=== PATIENT | female | born 1960 | race Caucasian/White ===

== ENCOUNTER 2023-03-21 10:39 | Emergency (ER) | payer OTHER, SELFPAY ==
[2023-03-21 10:49] VITALS: BP 131/79
--- NOTE | 2023-03-21 12:15 | ED.GENMED ---
History of Present Illness
General
Chief Complaint: Musculo-Skeletal Complaint
Source: patient
Exam Limitations: none
Time Seen by Provider: 03/21/23 12:05
Nursing documentation reviewed up to this point in time: agreed with
Travel History
Have you had any contact with someone who has COVID-19?: No
Do you have any symptoms of coronavirus? Fever > 100 degrees, chills, cough, shortness of breath, sore throat, loss of taste or smell, muscle aches, or headache?: No
History of Present Illness
History of Present Illness:
Patient is a 63-year-old female who complains of right wrist pain and injury. She reports last night around 12 AM she fell back landing on her right wrist. She denies any other injuries. She denies hitting her head. She is on blood thinners.
She is right-hand dominant. She denies any lacerations.
Review of Systems
Review of Systems
All Other Systems: ROS reviewed and negative except as documented in HPI and ROS
Constitutional: Reports no symptoms
Musculoskeletal: Reports other (Right wrist pain)
Skin: Reports no symptoms
Neurological: Reports no symptoms
Psychiatric: Reports no symptoms
Phy Exam
General Physical Exam
General Presentation: no apparent distress
General age: appears stated age
General Skin: warm
General Mental: alert
General Hydration: appears well hydrated
Neurological Exam
Neurological Exam: alert and oriented x3
Musculoskeletal Exam
Musculoskeletal Exam: other (Right upper extremity strong pulses patient has swelling and tenderness over the navicular with normal cap refill, no tenderness to fingers no tenderness to the elbow full range of motion to elbow)
Skin Exam
Skin Exam: normal color and warm/dry
Psychiatric Exam
Psychiatric Exam: normal mood/affect
Course
Orders/Labs/Results
Orders:
Orders
03/21/23 10:52
Wrist, Right 3 Views [CR Wrist - Right Min 3 Views] Urgent
Comment:
Reason For Exam: injury
03/21/23 12:15
Sling Right-Treatment ONCE
Splints/Slings/Crut- Treatment ONCE
Location: Right
Type of Splint: Thimb Spica
Vital Signs
Initial and Last Documented VS:
Initial Vital Signs
Temp Pulse Resp BP Pulse Ox
98 F 81 16 131/79 95
03/21/23 10:49 03/21/23 10:49 03/21/23 10:49 03/21/23 10:49 03/21/23 10:49
Last Documented Vital Signs
Temp Pulse Resp BP Pulse Ox
98 F 81 16 131/79 95
03/21/23 10:49 03/21/23 10:49 03/21/23 10:49 03/21/23 10:49 03/21/23 10:49
Procedures
Splint Check
Splint checked by provider?: Yes
Circulation/Movement/Sensation post splint application: brisk cap refill and full sensation
MDM/Problems Addressed
Differential Diagnosis Includes:
not limited to: sprain/contusion/fracture
MDM/Problems Addressed:
Patient with tenderness over navicular though no obvious fracture identified on x-ray will treat this fracture conservatively with splint. Patient has seen Dr. Frias in the past for surgery on her tendons of her right hand will DC back to see
Altagracia. Splint care reviewed. Patient has ibuprofen at home
*Radiology
Radiology exam reviewed: radiology read reviewed
*Critical Care Note
Total Time (30-74mins, 75-104mins- exclusive of procedures): Not Applicable
ED Attending Note
-
Portions of this chart may have been created with voice recognition software.� Occasional wrong word or��sound alike� substitutions may have occurred due to the inherent limitations of voice recognition software.
Discharge Plan
Departure
Patient Disposition: Home (Routine Discharge)
Date of Disposition: 03/21/23
Time of Disposition: 12:18
Patient with high blood pressure during this ER visit?: Yes
Condition: Fair
Covid-19: Not Applicable
Discharge Problem:
Right wrist sprain
Instructions: Wrist Sprain (DC), Splint Care, BLOOD PRESSURE
Referrals:
Dion Frias MD [Active] -
Mary Selby CRNP [Family Provider] -
Activity Restrictions/Additional Instructions:
As discussed you are tender over the navicular/scaphoid bone and therefore splinted. We treat this as possible fracture.
This will need outpatient followed by orthopedics. Please call orthopedics tomorrow to follow-up with Dr. Frias in the next 2 days. Keep splint dry. Do not wet it. Keep elevated as much as possible. You may take ibuprofen every 8 hours.. You
may wear sling for support but remove at night while sleeping.
Return if any worsening of symptoms of increased pain numbness tingling or any further concerns.
Interventions
Interventions:
*Risk Screen - Suicide Last Done: 03/21/23 10:49
*General Assessment Last Done: 03/21/23 10:49
*Neglect/Abuse Screening Last Done: 03/21/23 10:49
*ED COVID-19 Vaccine History Last Done: 03/21/23 10:58
ED-Musculoskeletal Assessment Last Done: 03/21/23 10:58
[2023-03-21 12:50] VITALS: BP 138/71
== END 2023-03-21 12:56 | disposition home or self-care (01) ==
LOC: EMR 10:39
PROVIDERS: EMERGENCY PHYSICIAN Emergency Medicine; FAMILY PHYSICIAN Nurse Practitioner Adult Health
DX: S63.501A Unspecified sprain of right wrist, initial encounter (principal); W01.0XXA Fall on same level from slipping, tripping and stumbling without subsequent striking against object, initial encounter; Z79.01 Long term (current) use of anticoagulants
CPT/HCPCS: 99283; 29125; 73110

== ENCOUNTER → 2023-10-14 13:32 | Outpatient (REF) | payer OTHER, SELFPAY | LOC: RCS 13:32 | PROVIDERS: ATTENDING PHYSICIAN Nurse Practitioner Adult Health | DX: I10 Essential (primary) hypertension (principal); R07.9 Chest pain, unspecified | CPT/HCPCS: 93017 ==

== ENCOUNTER → 2023-11-01 14:40 | Outpatient (REF) | payer OTHER, SELFPAY | LOC: RCS 14:40 | PROVIDERS: ATTENDING PHYSICIAN Nurse Practitioner Adult Health | DX: I10 Essential (primary) hypertension (principal); R07.9 Chest pain, unspecified | CPT/HCPCS: 93306 ==

== ENCOUNTER 2023-12-06 18:22 | Emergency (ER) | payer OTHER, SELFPAY ==
[2023-12-06 18:24] VITALS: BP 158/93
--- NOTE | 2023-12-06 18:24 | ED.SKININJ ---
HPI-Injury
<Shantal Person NP - Last Filed: 12/06/23 18:29>
General
Chief Complaint: Chest Pain
Time Seen by Provider: 12/06/23 21:16
<Christi Turner PA-C - Last Filed: 12/07/23 10:09>
General
Source: patient
History of Present Illness-Injury
Initial Injury comments:
63yoF with a history of hypertension and COPD presenting for evaluation of chest pain. Patient reports a constant right-sided chest pain for the past 2 weeks. She initially woke up with the pain. She denies any trauma or inciting incident. The
pain feels like a muscle strain. Pain is worse with certain movements and breathing. She took ibuprofen earlier today with some improvement. Her pain started to become severe earlier today which prompted her to come to the ED for evaluation. She
is otherwise asymptomatic and denies any fevers, cough, shortness of breath, vomiting.
ED Provider Triage
<Shantal Person NP - Last Filed: 12/06/23 18:29>
-
Patient seen by provider in Triage?: Seen in Triage
Attestation: A medical screening examination has been initiated by a qualified medical provider. Based on the assessment performed at this time, it has been determined that an emergent medical condition may exist and the patient has been informed
that further medical evaluation and possible additional diagnostic testing may be needed.
HPI: 63 yo female here for pain mid to right chest pain past two weeks. Moving makes it worse. Is constant, every day, resting pain is 3-4/10, today it got worse and now 10/10 with movement. Hurts to take a deep breath.
GENERAL: Alert , in no apparent distress
EYE: No visual abnormalities.
ENT: No visible abnormalities.
LUNGS: No acute respiratory distress
CHEST: Tender to palpate mid to right chest wall.
NEUROLOGICAL: Alert and oriented
SKIN: Skin intact. No visible changes.
MUSCULOSKELETAL: Moving extremities normally
PSYCH: Normal and appropriate interaction.
This is a medical evaluation conducted in person to initiate diagnostic evaluation and provide initial therapeutics. Please see further documentation by the treating clinician.
Phy Exam
<Christi Turner PA-C - Last Filed: 12/07/23 10:09>
General Physical Exam
General Presentation: well appearing and no apparent distress
General age: appears stated age
General Skin: warm and dry
General Habitus: normal
General Mental: alert
ENT Exam
ENT Exam: normocephalic
Cardiovascular Exam
Cardiovascular Exam: regular rate/rhythm, no edema, no murmur and normal peripheral pulses (2+ radial pulses bilaterally)
Pulmonary Exam
Pulmonary Exam: lungs clear, no respiratory distress, no crackles, no wheezing and other (+R chest wall tenderness. No skin changes or crepitus.)
Gastrointestinal Exam
Gastrointestinal Exam: non tender, soft and non distended
Neurological Exam
Neurological Exam: alert
[place] Coma Scale
Eye Opening: Spontaneous
Verbal Response: Oriented
Motor Response: Obeys Commands
GCS Total Score: 15
Skin Exam
Skin Exam: normal color and warm/dry
Psychiatric Exam
Psychiatric Exam: normal mood/affect
Scores
<Christi Turner PA-C - Last Filed: 12/07/23 10:09>
Heart Score for Chest Pain Patients
STEMI patient?: No
History: Slightly or Non-Suspicious
ECG: Normal
Age: >45 - <65 years
Risk Factors: 1 or 2 Risk Factors
Troponin: </= Normal Limit
Heart Score for Chest Pain Patients: 2
Heart Score Risk: 2.5% MACE over next 6 weeks
Course
Ashvinlt;Shantal Person [employer] - Last Filed: 12/06/23 18:29>
Orders/Labs/Results
Orders:
Orders
12/06/23 18:28
Electrocardiogram (*1) Urgent
Reason for Study: Chest Pain
EKG- Treatment ONCE
CR Chest - 2 Views Urgent
Comment:
Reason For Exam: mid to right chest pain
12/06/23 21:34
Ketorolac [Toradol] 15 mg IV NOW STA
12/06/23 21:50
Complete Blood Count/With Diff Urgent
Comprehensive Metabolic Panel Urgent
D-Dimer Urgent
Troponin I Urgent
12/06/23 22:52
Acetaminophen [Tylenol] 1,000 mg PO NOW STA
Ketorolac [Toradol] 15 mg IV NOW STA
Abnormal Lab Results
12/06/23
21:50
MCH 31.1 H pg
(27.0-31.0)
Glucose 128 H mg/dl
(70-99)
12/06/23 21:50
12/06/23 21:50
Vital Signs
Initial and Last Documented VS:
Initial Vital Signs
Temp Pulse Resp BP Pulse Ox
98.1 F 84 16 158/93 96
12/06/23 18:24 12/06/23 18:24 12/06/23 18:24 12/06/23 18:24 12/06/23 18:24
Last Documented Vital Signs
Temp Pulse Resp BP Pulse Ox
98.1 F 69 21 133/82 97
12/06/23 18:24 12/06/23 23:15 12/06/23 23:15 12/06/23 23:00 12/06/23 23:15
Ashvinlt;Christi Turner PA-C - Last Filed: 12/07/23 10:09>
Orders/Labs/Results
Orders:
Orders
12/06/23 18:28
Electrocardiogram (*1) Urgent
Reason for Study: Chest Pain
EKG- Treatment ONCE
CR Chest - 2 Views Urgent
Comment:
Reason For Exam: mid to right chest pain
12/06/23 21:34
Ketorolac [Toradol] 15 mg IV NOW STA
12/06/23 21:50
Complete Blood Count/With Diff Urgent
Comprehensive Metabolic Panel Urgent
D-Dimer Urgent
Troponin I Urgent
12/06/23 22:52
Acetaminophen [Tylenol] 1,000 mg PO NOW STA
Ketorolac [Toradol] 15 mg IV NOW STA
Abnormal Lab Results
12/06/23
21:50
MCH 31.1 H pg
(27.0-31.0)
Glucose 128 H mg/dl
(70-99)
12/06/23 21:50
12/06/23 21:50
Vital Signs
Initial and Last Documented VS:
Initial Vital Signs
Temp Pulse Resp BP Pulse Ox
98.1 F 84 16 158/93 96
12/06/23 18:24 12/06/23 18:24 12/06/23 18:24 12/06/23 18:24 12/06/23 18:24
Last Documented Vital Signs
Temp Pulse Resp BP Pulse Ox
98.1 F 69 21 133/82 97
12/06/23 18:24 12/06/23 23:15 12/06/23 23:15 12/06/23 23:00 12/06/23 23:15
<Christi Turner PA-C - Last Filed: 12/07/23 10:09>
MDM/Problems Addressed
Differential Diagnosis Includes:
63yoF here with R sided chest pain x 2 weeks. Constant pain that is worse with movement/breathing. Denies trauma. VSS. She is well appearing in no distress. There is reproducible tenderness on exam. Differential diagnosis includes but is not limited
to: costochondritis, pleurisy, pneumonia, pneumothorax, PE, ACS
Initial ED plan: Check cardiac labs, D-dimer, EKG, and CXR. IV Toradol for pain.
<Christi Turner PA-C - Last Filed: 12/07/23 10:09>
*EKG
Interpreted by ED Provider?: Yes
EKG Intrepretation Date: 12/06/23
Heart Rate: 79
Rate: normal
Rhythm: sinus
[place]: normal axis
Interval: normal interval
QRS Pattern: normal QRS
Ischemia: no ischemia
*Critical Care Note
Total Time (30-74mins, 75-104mins- exclusive of procedures): Not Applicable
<Christi Turner PA-C - Last Filed: 12/07/23 10:09>
Update Note
Update Note:
Labs overall unremarkable. D-dimer normal making PE very unlikely. EKG shows NSR without ischemic changes and troponin WNL. CXR is clear. Pain improved with Toradol. No indication for admission. Suspect musculoskeletal cause of pain. Supportive care
discussed. She has an appt tomorrow with her PCP for close f/u. ED return precautions discussed. She expressed understanding and is agreeable to plan. She was discharged in stable condition.
ED Attending Note
<Shantal Person [employer] - Last Filed: 12/06/23 18:29>
-
Portions of this chart may have been created with voice recognition software.� Occasional wrong word or��sound alike� substitutions may have occurred due to the inherent limitations of voice recognition software.
Discharge Plan
Departure
Patient Disposition: Home (Routine Discharge)
Date of Disposition: 12/06/23
Time of Disposition: 22:53
Patient with high blood pressure during this ER visit?: Yes
Discharge Problem:
Chest wall pain
Instructions: Chest Pain PCP Follow Up
Referrals:
Mary Selby CRNP [Family Provider] -
Activity Restrictions/Additional Instructions:
Apply heat to affected area. Take Tylenol and ibuprofen as needed for pain.
Please follow-up with your family doctor tomorrow. Return to the ER with any new or worsening symptoms.
Interventions
Interventions:
*Risk Screen - Suicide Last Done: 12/06/23 18:24
*General Assessment Last Done: 12/06/23 21:25
*Neglect/Abuse Screening Last Done: 12/06/23 18:24
ED- Fall Risk Assessment Last Done: 12/06/23 21:25
*ED COVID-19 Vaccine History Last Done: 12/06/23 21:25
*Nursing Disposition Last Done: 12/06/23 23:30
ED- Cardiac Assessment Last Done: 12/06/23 21:25
Discharge Date and Time
Discharge Date/Time: 12/06/23 23:30
Print Language: TURKMEN
[2023-12-06 20:40] VITALS: BP 170/69
[2023-12-06 21:45] VITALS: BP 133/85
[2023-12-06 21:51] VITALS: BMI 26.4
[2023-12-06] MEDS: TORADOL 15 MG IV ×2 (21:54→23:22)
[2023-12-06 21:59] LABS: % Basophils 0.5 % (0-2); % Eosinophils 1.4 % (0-6); % Immature Granulocytes 0.2 % (0-0.5); % Lymphocytes 34.3 % (20.5-51.1); % Monocytes 5.9 % (1.7-9.3); % Neutrophils 57.7 % (42.2-75.2); Absolute Eosinophils 0.1 10^3/uL (0-0.7); Absolute Monocytes 0.3 10^3/uL (0.1-0.6); Absolute Neutrophils 3.3 10^3/uL (1.4-6.5); Hematocrit 37.3 % (37.0-47.0); Hemoglobin 13.1 g/dL (12.0-16.0); Mean Corp Hgb Conc. 35.1 g/dL (33.0-37.0); Mean Corpuscular Hgb 31.1 pg (27.0-31.0); Mean Corpuscular Volume 88.6 fL (81.0-99.0); Mean Platelet Volume 9.3 fL (7.4-10.4); Nucleated Red Blood Cells % 0 %; Platelet Count 177 10^3/uL (130-400); Red Blood Cell Count 4.21 10^6/uL (4.20-5.40); Red Cell Dist. Width 11.6 % (11.5-14.5); White Blood Cell Count 5.8 10^3/uL (4.8-10.8)
[2023-12-06 22:00] VITALS: BP 147/88
[2023-12-06 22:11] LABS: D-Dimer 0.49 ug/mlFEU (0.00-0.50)
[2023-12-06 22:19] LABS: ALT (SGPT) 21 U/L (0-35); AST (SGOT) 30 U/L (14-36); Albumin 4.3 g/dl (3.5-5.0); Alkaline Phosphatase 95 U/L (38-126); Blood Urea Nitrogen 17 mg/dl (7-17); Calcium 9.5 mg/dl (8.4-10.2); Carbon Dioxide 25 mmol/L (22-30); Chloride 103 mmol/L (98-107); Estimated Creatinine Clearance 76 ml/min; Glucose 128 mg/dl (70-99); Potassium 3.6 mmol/L (3.5-5.1); Sodium 140 mmol/L (135-145); Total Bilirubin 0.6 mg/dl (0.2-1.3); Total Protein 6.8 g/dl (6.3-8.2); eGFR > 60.00
[2023-12-06 22:24] LABS: Troponin I < 0.012 ng/ml
[2023-12-06 23:00] VITALS: BP 133/82
[2023-12-06] MEDS: TYLENOL 1000 MG PO (23:23)
== END 2023-12-06 23:30 | disposition home or self-care (01) ==
LOC: EMR 18:22
PROVIDERS: Physician Assistant; EMERGENCY PHYSICIAN Emergency Medicine; FAMILY PHYSICIAN Nurse Practitioner Adult Health
DX: R07.89 Other chest pain (principal); I10 Essential (primary) hypertension; J44.9 Chronic obstructive pulmonary disease, unspecified
CPT/HCPCS: 96374; 96375; 96376; 99285; 71046; 80053; 84484; 85025; 85379; 93005

== ENCOUNTER → 2024-01-18 12:22 | Outpatient (REF) | payer MEDICARE, OTHER, SELFPAY | LOC: RAD 12:22 | PROVIDERS: ATTENDING PHYSICIAN Internal Medicine Critical Care Medicine; FAMILY PHYSICIAN Nurse Practitioner Adult Health | DX: R91.8 Other nonspecific abnormal finding of lung field (principal); E27.8 Other specified disorders of adrenal gland | CPT/HCPCS: 71250; 74150 ==

== ENCOUNTER 2024-02-06 17:47 | Emergency (ER) | payer MEDICARE, OTHER, SELFPAY ==
[2024-02-06 17:51] VITALS: BP 163/87
--- NOTE | 2024-02-06 18:00 | ED.GENMED ---
History of Present Illness
General
Chief Complaint: Musculo-Skeletal Complaint
Source: patient
Exam Limitations: none
Time Seen by Provider: 02/06/24 17:58
Nursing documentation reviewed up to this point in time: agreed with
History of Present Illness
History of Present Illness:
64-year-old female presenting to the emergency department today with concerns of a fourth toe injury to the left foot that she had on a riser 2 nights ago. Discomfort with ambulation ongoing. Denies numbness weakness or additional injuries
Review of Systems
Review of Systems
Allergies reviewed?: Yes
All Other Systems: ROS reviewed and negative except as documented in HPI and ROS
Phy Exam
Physical Exam
Physical Exam:
GENERAL: Alert , in no apparent distress
EYE: pupils equal and reactive
NECK: Supple, no significant adenopathy.
ENT: o/p clr, mmm.
CARDIAC: Regular rate and rhythm .
LUNGS: Clear breath sounds bilaterally, no acute respiratory distress, no wheezes/rales/rhonchi
ABDOMEN: Soft, without focal tenderness, no r/g, no cvat
NEUROLOGICAL: Alert and oriented, no focal neuro deficits
SKIN: Warm and dry, skin intact.
MUSCULOSKELETAL: Left fourth toe swelling redness tenderness palpation. No tenderness throughout the remainder of the foot remainder of the toes or ankle. Ambulating well, well perfused.
PSYCH: Normal and appropriate interaction.
Course
Orders/Labs/Results
Orders:
Orders
02/06/24 17:49
CR Foot - Left Min 3 Views Urgent
Reason For Exam: pain to left 4th toe
02/06/24 18:15
boot [Ortho Boot Left- Treatment] ONCE
Short or tall?: Short
Vital Signs
Initial and Last Documented VS:
Initial Vital Signs
Temp Pulse Resp BP Pulse Ox
97.8 F 94 16 163/87 98
02/06/24 17:51 02/06/24 17:51 02/06/24 17:51 02/06/24 17:51 02/06/24 17:51
Last Documented Vital Signs
Temp Pulse Resp BP Pulse Ox
97.8 F 94 16 163/87 98
02/06/24 17:51 02/06/24 17:51 02/06/24 17:51 02/06/24 17:51 02/06/24 17:51
MDM/Problems Addressed
MDM/Problems Addressed:
64-year-old female presenting to the emergency department today with concerns of left fourth toe discomfort after hitting it on a riser 2 nights ago. There is tenderness to palpation on examination. To the fourth toe. X-ray showing fracture.
Patient was parvin taped and given a hard soled shoe but otherwise stable for outpatient follow-up return precautions given.
*Critical Care Note
Total Time (30-74mins, 75-104mins- exclusive of procedures): Not Applicable
ED Attending Note
-
Portions of this chart may have been created with voice recognition software.� Occasional wrong word or��sound alike� substitutions may have occurred due to the inherent limitations of voice recognition software.
Discharge Plan
Departure
Patient Disposition: Home (Routine Discharge)
Date of Disposition: 02/06/24
Time of Disposition: 18:23
Patient with high blood pressure during this ER visit?: No
Condition: Good
Covid-19: Not Applicable
Discharge Problem:
Closed fracture of fourth toe of left foot
Instructions: Toe Fracture ED
Referrals:
Mary Selby CRNP [Family Provider] -
Activity Restrictions/Additional Instructions:
You came to the emergency department today with concerns of toe discomfort. You are found have a fracture to the proximal phalanx of the fourth toe. Please use the hard soled shoe elevate and ice with hopeful improvement over the next few weeks.
Please follow closely with the foot for any ongoing issues. Return for any worsening, new or concerning symptoms.
Interventions
Interventions:
*Risk Screen - Suicide Last Done: 02/06/24 17:51
*Neglect/Abuse Screening Last Done: 02/06/24 17:51
Discharge Date and Time
Print Language: MALAY
[2024-02-06 18:44] VITALS: BP 160/80
== END 2024-02-06 18:46 | disposition home or self-care (01) ==
LOC: EMR 17:47
PROVIDERS: EMERGENCY PHYSICIAN Emergency Medicine; FAMILY PHYSICIAN Nurse Practitioner Adult Health
DX: S92.502A Displaced unspecified fracture of left lesser toe(s), initial encounter for closed fracture (principal); W22.09XA Striking against other stationary object, initial encounter
CPT/HCPCS: 99283; 73630

== ENCOUNTER 2024-08-11 21:02 | Emergency (ER) | payer MEDICARE, OTHER, SELFPAY ==
[2024-08-11 21:04] VITALS: BP 122/76
--- NOTE | 2024-08-11 22:27 | ED.SKININJ ---
HPI-Injury
General
Chief Complaint: Skin Problem
Source: patient
Exam Limitations: none
Time Seen by Provider: 08/11/24 21:28
Nursing documentation reviewed up to this point in time: agreed with
History of Present Illness-Injury
Is this injury a work related problem?: No
Is pt an associate of [facility] [place]?: No
Initial Injury comments:
Patient states a knife fell and cut her right great toe. Incident occurred just dentures lab technician
Past History
Past History
ED Past Medical History: None
Review of Systems
Review of Systems
Allergies reviewed?: Yes
All Other Systems: ROS reviewed and negative except as documented in HPI and ROS
Constitutional: Reports no symptoms
Musculoskeletal: Reports no symptoms
Skin: Reports other (Laceration to dorsal surface right great toe)
Neurological: Reports no symptoms
Psychiatric: Reports no symptoms
Skin Exam
Laceration
Right Dorsal First Toe:
Length in cm: 2.5
Orientation: horizontal
Type of Laceration: simple
Any active bleeding?: no active bleeding
Distal skin color and temperature: normal-warm & good color
Normal distal neurovascular exam: Yes
Range of motion: full
Phy Exam
General Physical Exam
General Presentation: well appearing and no apparent distress
General age: appears stated age
General Skin: warm and dry
General Habitus: normal
General Mental: alert
Musculoskeletal Exam
Musculoskeletal Exam: full ROM, neuro vasc intact and other (No evidence of tendon injury. Full ROM toe, equal strenght bilaterally)
Skin Exam
Skin Exam: normal color, warm/dry and no rash
Psychiatric Exam
Psychiatric Exam: normal mood/affect
Course
Orders/Labs/Results
Orders:
Orders
08/11/24 22:23
Sulfamethox./Trimethoprim Ds [Bactrim Ds 800 mg/160 mg] 1 tablet PO NOW STA
08/11/24 22:24
Cast Shoe Right-Treatment ONCE
Vital Signs
Initial and Last Documented VS:
Initial Vital Signs
Temp Pulse Resp BP Pulse Ox
98.6 F 81 20 122/76 93
08/11/24 21:04 08/11/24 21:04 08/11/24 21:04 08/11/24 21:04 08/11/24 21:04
Last Documented Vital Signs
Temp Pulse Resp BP Pulse Ox
98.6 F 81 20 122/76 93
08/11/24 21:04 08/11/24 21:04 08/11/24 21:04 08/11/24 21:04 08/11/24 21:04
Procedures
Laceration Closure
Right Dorsal First Toe:
Status of Wound: clean
Description of Wound Edges: sharp
Preparation: cleaned with saline and cleaned with Betadine
Anesthesia: 1% Lidocaine and Digital-Regional
Wound exploration: explored to base- no FB and no tendon involvement (No evidence of injury on exam. WIll follow up with ortho next week for reassessment of tendon.)
Type of Closure: single layer closure
Skin Closure Material: 4-0 prolene
*Pulse Oximetry
SaO2: 93
Oxygen Mode of Delivery: Room air
Patient hypoxic: no
*Critical Care Note
Total Time (30-74mins, 75-104mins- exclusive of procedures): Not Applicable
ED Attending Note
-
Portions of this chart may have been created with voice recognition software.� Occasional wrong word or��sound alike� substitutions may have occurred due to the inherent limitations of voice recognition software.
Discharge Plan
Departure
Patient Disposition: Home (Routine Discharge)
Date of Disposition: 08/11/24
Time of Disposition: 22:25
Patient with high blood pressure during this ER visit?: No
Condition: Good
Covid-19: Not Applicable
Discharge Problem:
Laceration of toe
Instructions: Stitches - ED discharge instructions
Prescriptions:
New
sulfamethoxazole-trimethoprim [Bactrim DS] 800-160 mg tablet
1 tab PO BID Qty: 14 0RF
Referrals:
Hu Chiu DPM [Active, Podiatry] - Call in 1-3 days for appt
Mary Selby CRNP [Family Provider, General]
Activity Restrictions/Additional Instructions:
Follow up with orthopedics for reassessment of your right great toe tendon. Sutures can be removed by your family doctor in 7-10 days.
Interventions
Interventions:
*General Assessment Last Done: 08/11/24 21:04
Discharge Date and Time
Print Language: LITHUANIAN
[2024-08-11] MEDS: BACTRIM DS 800 MG/160 MG 1 TABLET PO (22:37)
== END 2024-08-11 23:05 | disposition home or self-care (01) ==
LOC: EMR 21:02
PROVIDERS: EMERGENCY PHYSICIAN Emergency Medicine; FAMILY PHYSICIAN Nurse Practitioner Adult Health
DX: S91.111A Laceration without foreign body of right great toe without damage to nail, initial encounter (principal); W26.0XXA Contact with knife, initial encounter
CPT/HCPCS: 12001; 99282

== ENCOUNTER 2024-10-30 06:05 | Day surgery (SDC) | payer MEDICARE, OTHER, SELFPAY ==
[2024-10-17 08:57] LABS: Hematocrit 42.6 % (37.0-47.0); Hemoglobin 14.2 g/dL (12.0-16.0); Mean Corp Hgb Conc. 33.3 g/dL (33.0-37.0); Mean Corpuscular Volume 94.7 fL (81.0-99.0); Platelet Count 178 10^3/uL (130-400); Red Cell Dist. Width 11.9 % (11.5-14.5)
[2024-10-17 11:10] LABS: Blood Urea Nitrogen 12 mg/dl (7-17); Calcium 9.4 mg/dl (8.4-10.2); Carbon Dioxide 25 mmol/L (22-30); Chloride 106 mmol/L (98-107); Glucose 96 mg/dl (70-99); Potassium 4.6 mmol/L (3.5-5.1); Sodium 136 mmol/L (135-145); eGFR > 60.00
[2024-10-17 14:05] VITALS: BMI 25.0
[2024-10-30] VITALS (8 sets, daily range): BP systolic 111–141; BP diastolic 50–86; BMI 25.0
[2024-10-30] MEDS: CELEBREX 200 MG PO (08:33)
[2024-10-30] MEDS: TYLENOL 1000 MG PO (08:33)
[2024-10-30] MEDS: NORMOSOL-R/PLASMALYTE-A 1000 IV (08:35)
[2024-10-30] MEDS: VANCOCIN 200 IV (08:41)
== END 2024-10-30 12:57 | disposition home or self-care (01) ==
LOC: SDS 06:05
PROVIDERS: ATTENDING PHYSICIAN Student in an Organized Health Care Education/Training Program; FAMILY PHYSICIAN Nurse Practitioner Adult Health
DX: S96.111A Strain of muscle and tendon of long extensor muscle of toe at ankle and foot level, right foot, initial encounter (principal); X58.XXXA Exposure to other specified factors, initial encounter
CPT/HCPCS: 28208; 36415; 80048; 85027; 87070; 93005; C1713

== ENCOUNTER → 2025-01-01 10:01 | Outpatient (REF) | payer MEDICARE, OTHER, SELFPAY | LOC: RAD 10:01 | PROVIDERS: ATTENDING PHYSICIAN Internal Medicine Critical Care Medicine; FAMILY PHYSICIAN Nurse Practitioner Adult Health | DX: R91.8 Other nonspecific abnormal finding of lung field (principal) | CPT/HCPCS: 71250 ==

== ENCOUNTER 2025-01-01 10:55 | Outpatient (RCR) | payer MEDICARE, OTHER, SELFPAY | END 2025-01-01 23:59 | disposition home or self-care (01) | LOC: RPT 10:55 | PROVIDERS: ATTENDING PHYSICIAN Student in an Organized Health Care Education/Training Program; FAMILY PHYSICIAN Nurse Practitioner Adult Health | DX: Z47.89 Encounter for other orthopedic aftercare (principal); M79.671 Pain in right foot; S96.811D Strain of other specified muscles and tendons at ankle and foot level, right foot, subsequent encounter; R26.2 Difficulty in walking, not elsewhere classified; M62.81 Muscle weakness (generalized); R26.89 Other abnormalities of gait and mobility; W20.8XXD Other cause of strike by thrown, projected or falling object, subsequent encounter | CPT/HCPCS: 97110; 97162; 97535 ==

== ENCOUNTER 2025-01-18 06:53 | Outpatient (RCR) | payer MEDICARE, OTHER, SELFPAY | END 2025-02-06 23:59 | disposition home or self-care (01) | LOC: RPT 06:53 | PROVIDERS: ATTENDING PHYSICIAN Student in an Organized Health Care Education/Training Program; FAMILY PHYSICIAN Nurse Practitioner Adult Health | DX: Z47.89 Encounter for other orthopedic aftercare; M79.671 Pain in right foot; S96.811D Strain of other specified muscles and tendons at ankle and foot level, right foot, subsequent encounter; R26.2 Difficulty in walking, not elsewhere classified; M62.81 Muscle weakness (generalized); R26.89 Other abnormalities of gait and mobility; W20.8XXD Other cause of strike by thrown, projected or falling object, subsequent encounter | CPT/HCPCS: 97110; 97140; 97530 ==

== ENCOUNTER 2025-02-01 11:31 | Emergency (ER) | payer MEDICARE, OTHER, SELFPAY ==
[2025-02-01 11:34] VITALS: BP 152/89
--- NOTE | 2025-02-01 13:32 | ED.GENMED ---
History of Present Illness
General
Chief Complaint: Skin Problem
Source: patient
Exam Limitations: none
Time Seen by Provider: 02/01/25 13:23
History of Present Illness
History of Present Illness:
64yoF with a history of hypertension and asthma presenting for evaluation of a right foot laceration. Patient dropped a glass [place] ornament 5 days ago and caused a laceration to the lateral foot. She continues to have discomfort in the area
and is worried that a piece of glass may be stuck in there. She denies any redness or drainage. Unknown last Tdap.
Past History
Past History
ED Past Medical History: None
Phy Exam
General Physical Exam
General Presentation: well appearing and no apparent distress
General age: appears stated age
General Skin: warm and dry
General Habitus: normal
General Mental: alert
ENT Exam
ENT Exam: normocephalic
Neurological Exam
Neurological Exam: alert
[place] Coma Scale
Eye Opening: Spontaneous
Verbal Response: Oriented
Motor Response: Obeys Commands
GCS Total Score: 15
Skin Exam
Skin Exam: normal color, warm/dry and other (Small <2cm laceration noted to the R lateral foot. No active bleeding. No drainage, erythema, or other signs of infection. Area is tender but no palpable/visible FB appreciated.)
Psychiatric Exam
Psychiatric Exam: normal mood/affect
Course
Orders/Labs/Results
Orders:
Orders
02/01/25 11:50
CR Foot - Right Min 3 Views Urgent
Comment:
Reason For Exam: foreign body
Vital Signs
Initial and Last Documented VS:
Initial Vital Signs
Temp Pulse Resp BP Pulse Ox
98.4 F 109 18 152/89 95
02/01/25 11:34 02/01/25 11:34 02/01/25 11:34 02/01/25 11:34 02/01/25 11:34
Last Documented Vital Signs
Temp Pulse Resp BP Pulse Ox
98.4 F 109 18 152/89 95
02/01/25 11:34 02/01/25 11:34 02/01/25 11:34 02/01/25 11:34 02/01/25 13:33
MDM/Problems Addressed
Differential Diagnosis Includes:
64yoF here with a R foot laceration sustained 5 days ago after dropping a glass [place] ornament. Worried a piece of glass is stuck. No visible/palpable FB noted on exam and there are no signs of infection. Foot x-rays obtained which also do not
show any radiopaque foreign bodies. Unknown last Tdap. Recommended tetanus vaccine today but patient declines this stating she has an upcoming appt with her PCP in 2 weeks. Supportive care discussed including foot soaks and advised f/u with podiatry
if symptoms persist. Advised return to the ED with any signs of infection.
*Pulse Oximetry
SaO2: 95
Oxygen Mode of Delivery: Room air
Patient hypoxic: no
*Critical Care Note
Total Time (30-74mins, 75-104mins- exclusive of procedures): Not Applicable
ED Attending Note
-
Portions of this chart may have been created with voice recognition software.� Occasional wrong word or��sound alike� substitutions may have occurred due to the inherent limitations of voice recognition software.
Discharge Plan
Departure
Patient Disposition: Home (Routine Discharge)
Date of Disposition: 02/01/25
Time of Disposition: 13:31
Patient with high blood pressure during this ER visit?: Yes
Discharge Problem:
Laceration of right foot
Instructions: Laceration
Prescriptions:
No Action
Breo Ellipta 50-25 mcg/dose Blister With Device
1 inh INHALATION DAILY
losartan 50 mg Tablet
50 mg PO DAILY
albuterol sulfate 90 mcg/actuation Hfa Aerosol Inhaler
2 puff INHALATION PRN PRN (Reason: allergies)
Referrals:
Raymond Robison DPM [Specified Professional Personl, Podiatry]
Mary Selby CRNP [Family Provider, General]
Activity Restrictions/Additional Instructions:
Monitor the area and return to the ER with any signs of infection.
Please follow-up with podiatry if symptoms persist.
Interventions
Interventions:
*Neglect/Abuse Screening Last Done: 02/01/25 12:09
*ED COVID-19 Vaccine History Last Done: 02/01/25 11:34
*ED Influenza Vaccine History Last Done: 02/01/25 11:34
*Risk Screen - Suicide (C-SSRS) Last Done: 02/01/25 11:34
*Nursing Disposition Last Done: 02/01/25 13:34
ED-Skin Assessment Last Done: 02/01/25 13:34
Discharge Date and Time
Discharge Date/Time: 02/01/25 13:34
Print Language: INDONESIAN
== END 2025-02-01 13:34 | disposition home or self-care (01) ==
LOC: EMR 11:31
PROVIDERS: EMERGENCY PHYSICIAN Emergency Medicine; FAMILY PHYSICIAN Nurse Practitioner Adult Health
DX: S91.311A Laceration without foreign body, right foot, initial encounter (principal); W25.XXXA Contact with sharp glass, initial encounter; I10 Essential (primary) hypertension; J45.909 Unspecified asthma, uncomplicated
CPT/HCPCS: 99283; 73630